=== PATIENT | male | born 1945 | race Caucasian/White ===

== ENCOUNTER 2020-07-05 16:32 | Emergency (ER) | payer BC, MEDICAID ==
[~2020-07-05] VITALS: Ht 157.5 cm; Wt 59.0 kg
[2020-07-05 16:40] VITALS: BP 140/97
== END 2020-07-05 18:27 | disposition home or self-care (01) ==
LOC: ER 16:32
DX: R33.9 Retention of urine, unspecified (principal); N40.0 Benign prostatic hyperplasia without lower urinary tract symptoms; I10 Essential (primary) hypertension
CPT/HCPCS: 51702; 99284

== ENCOUNTER 2020-07-28 12:34 | Emergency (ER) | payer BC, MEDICAID ==
[~2020-07-28] VITALS: Ht 160 cm; Wt 59.0 kg
[2020-07-28] MEDS ORDERED: ALFU10TA9 MT (13:55)
[2020-07-28 14:02] LABS: CLARITY URINE CLEAR (CLEAR); COLOR URINE YELLOW (YELLOW); KETONES URINE NEGATIVE (NEGATIVE); LEUKOCYTE ESTERASE URINE TRACE (NEGATIVE); NITRITE URINE NEGATIVE (NEGATIVE); OCCULT BLOOD URINE 2+ (NEGATIVE); PROTEIN URINE TRACE (NEGATIVE); SPECIFIC GRAVITY URINE 1.017 (1.005-1.030); UROBILINOGEN URINE 0.2 E.U./dL (0.2-1.0)
[2020-07-28 15:10] VITALS: BP 128/82
== END 2020-07-28 15:10 | disposition home or self-care (01) ==
LOC: ER 12:34
DX: R33.9 Retention of urine, unspecified (principal); I49.9 Cardiac arrhythmia, unspecified
CPT/HCPCS: 51702; 81003; 93005; 99284